=== PATIENT | female | born 1960 | race Caucasian/White ===

== ENCOUNTER 2023-11-26 12:12 | Emergency (ER) | payer BC ==
[~2023-11-26] VITALS: Ht 172.7 cm; Wt 83.9 kg
[2023-11-26 12:25] VITALS: BP_SYST 134; PULSE 119; RESP 22; TEMP 97.9; O2SAT 97
[2023-11-26 13:18] LABS: BASOPHILS % (AUTO) 0.4 % (0.0-2.0); EOSINOPHILS % (AUTO) 0.5 % (0.0-4.0); HEMATOCRIT 41.7 % (36-48); HEMOGLOBIN 14.1 g/dL (12.0-16.0); LYMPHOCYTES % (AUTO) 15.7 % (20.5-51.5); MEAN CORPUSCULAR HEMOGLOBIN 31 pg (27-31); MEAN CORPUSCULAR HGB CONC 34 % (32-36); MEAN CORPUSCULAR VOLUME 91 fL (79.0-98.0); MONOCYTES # (AUTO) 0.4 K/uL (0.0-1.0); MONOCYTES % (AUTO) 5.9 % (1.7-9.3); NEUTROPHILS % (AUTO) 77.5 % (40.0-70.0); PLATELET COUNT (AUTO) 371 K/uL (130-430); RED CELL DISTRIBUTION WIDTH 14.4 % (9.0-15.0); WHITE BLOOD COUNT (AUTO) 6.5 K/uL (4.8-10.8)
[2023-11-26] MEDS: NACL 0.9% 1,000 ML IV ONE (13:42)
[2023-11-26 13:49] LABS: ALBUMIN 3.9 g/dL (3.4-4.8); BILIRUBIN,DIRECT 0.1 mg/dL (0.0-0.3); CALCIUM 8.7 mg/dL (8.4-11.0); CREATININE 0.74 mg/dL (0.55-1.30); TOTAL BILIRUBIN 0.4 mg/dL (0.0-1.0); TOTAL PROTEIN, SERUM 7.3 g/dL (6.4-8.3)
[2023-11-26] MEDS: POTASSIUM CHLORIDE 20 MEQ/PKT PACKET PO ONE (15:13)
[2023-11-26] MEDS ORDERED: CIPR500T5 PO (16:24)
[2023-11-26] MEDS ORDERED: METR-154 PO (16:24)
[2023-11-26 16:52] VITALS: BP_SYST 134; PULSE 114; RESP 20; TEMP 98.6; O2SAT 98
== END 2023-11-26 16:51 | disposition home or self-care (01) ==
LOC: SED 12:12
DX: K57.92 Diverticulitis of intestine, part unspecified, without perforation or abscess without bleeding (principal)
CPT/HCPCS: 99284; 74176; 96360; 80076; 80048; 85025; 36415; J7030